=== PATIENT | female | born 1945 | race Hispanic/Latino ===

== ENCOUNTER 2017-11-12 18:24 | Inpatient (IN) | payer MEDICARE ==
[~2017-11-12] VITALS: Ht 167.6 cm; Wt 61.1 kg
[2017-11-12] MEDS: METHYLPREDNISOLONE SOD SUCC 125MG/2ML VIAL IV SCH (09:15)
[2017-11-12] MEDS ORDERED: CEFTRIAXONE SODIUM 1 GM ONE (18:44)
[2017-11-12 19:16] LABS: BASOPHILS % (AUTO) 0.2 % (0.0-5.0); EOSINOPHILS % (AUTO) 0.1 % (0.0-8.0); HEMATOCRIT 41.7 % (36-48); LYMPHOCYTES % (AUTO) 7.7 % (21.0-51.0); MEAN CORPUSCULAR HEMOGLOBIN 29.4 pg (27.0-33.0); MEAN CORPUSCULAR HGB CONC 33.9 g/dL (32.0-36.0); MEAN CORPUSCULAR VOLUME 86.8 fL (79-99); MONOCYTES % (AUTO) 5.1 % (3.0-13.0); NEUTROPHILS % (AUTO) 86.9 % (40.0-77.0); PLATELET COUNT (AUTO) 244 K/uL (130-400); RED BLOOD CELL COUNT(AUTO) 4.81 MIL/uL (4.00-5.50); RED CELL DISTRIBUTION WIDTH 15.2 % (11.0-15.5); WHITE BLOOD COUNT (AUTO) 12.1 K/uL (4.8-10.8)
[2017-11-12 19:26] LABS: INR 0.98 (0.85-1.15); PARTIAL THROMBOPLASTIN TIME 25.2 SEC (26.3-35.5); PROTHROMBIN TIME 10.3 SEC (9.6-11.6)
[2017-11-12 19:27] LABS: CARBON DIOXIDE 30 mmol/L (21-32); CHLORIDE 98 mmol/L (101-111); CREATININE 0.8 mg/dL (0.5-1.5); GLOMERULAR FILTR. RATE CALC 75 mL/min (>60); GLUCOSE,RANDOM 243 mg/dL (70-105); SODIUM SERUM 137 mmol/L (136-145); UREA NITROGEN, BLOOD 12 mg/dL (7-18)
[2017-11-12] MEDS ORDERED: ACETAMINOPHEN 325 MG TAB ONE (19:35)
[2017-11-12 19:41] LABS: ALANINE AMINOTRANSFERASE 35 U/L (12-78); ALBUMIN 3.6 g/dL (3.5-5.0); ASPARTATE AMINOTRANSFERASE 33 U/L (10-37); BILIRUBIN,TOTAL 0.6 mg/dL (0.2-1.0); CREATINE KINASE MB < 0.5 ng/mL (0.5-3.6); CREATINE KINASE, TOTAL 82 U/L (21-232); MYOGLOBIN 35 ng/mL (10-92); TOTAL PROTEIN, SERUM 8.2 g/dL (6.0-8.3); TROPONIN I < 0.04 ng/mL (0.00-0.06)
[2017-11-12 19:45] LABS: APPEARANCE,URINE SL CLOUDY (CLEAR); BILIRUBIN,URINE NEGATIVE (NEGATIVE); COLOR,URINE YELLOW (YELLOW); GLUCOSE, URINE (UA) >=1000 mg/dL (NEGATIVE); KETONES,URINE 40 mg/dL (NEGATIVE); LEUKOCYTE ESTERASE ,URINE SMALL (NEGATIVE); NITRATE,URINE NEGATIVE (NEGATIVE); OCCULT BLOOD,URINE TRACE-INTACT (NEGATIVE); PROTEIN,URINE NEGATIVE (NEGATIVE)
[2017-11-12 19:57] LABS: BACTERIA,URINE Few /HPF (None Seen); RBC,URINE 0-1 /HPF (0-1); RENAL EPITHELIAL CELLS,URINE Rare /LPF (None Seen); TRANSITIONAL EPI CELLS,URINE Few /LPF (None Seen)
[2017-11-12] MEDS ORDERED: ALBUTEROL SULFATE 0.083% 2.5 MG/3 ML INH IH ONE (21:17)
[2017-11-12] MEDS ORDERED: METOPROLOL TARTRATE 1 MG/ML 5ML VIAL IV ONE ×2 (21:19→22:12)
[2017-11-12] MEDS ORDERED: DIGOXIN 250 MCG/ML 2ML AMP ONE (22:24)
[2017-11-12] MEDS ORDERED: METHYLPREDNISOLONE SOD SUCC 125MG/2ML VIAL ONE (22:35)
[2017-11-12] MEDS ORDERED: ENOXAPARIN SODIUM 60 MG/0.6 ML SQ ONE (22:44)
[2017-11-12] MEDS ORDERED: LACTULOSE 20 GM/30 ML UDCUP PO PRN (22:45)
[2017-11-12] MEDS ORDERED: CEFTRIAXONE 1GM/D5W 50ML 50 ML IV SCH (22:45)
[2017-11-12] MEDS ORDERED: POTASSIUM CHLORIDE 20 MEQ ERTAB PO PRN (22:45)
[2017-11-12] MEDS ORDERED: GUAIFENESIN-DM 200/20 MG 10 ML PO PRN (22:45)
[2017-11-12] MEDS: FUROSEMIDE 10 MG/ML 2ML VIAL IV SCH (22:45)
[2017-11-12] MEDS ORDERED: ONDANSETRON HCL 4 MG/2 ML VIAL IV PRN (22:45)
[2017-11-12] MEDS ORDERED: HYDRALAZINE HCL 20 MG/ML VIAL IV PRN (22:45)
[2017-11-12] MEDS: AZITHROMYCIN 500MG+NS 250ML 250 ML IV SCH (22:45)
[2017-11-12] MEDS ORDERED: POTASSIUM CHLORIDE 10% ELIXIR 20 MEQ/15 ML UDCUP PO PRN (22:45)
[2017-11-12] MEDS ORDERED: NITROGLYCERIN 0.4 MG SL TAB SL PRN (22:45)
[2017-11-12] MEDS ORDERED: LIDOCAINE HCL-MPF 1% 2ML VIAL IVP PRN (22:45)
[2017-11-12] MEDS ORDERED: POTASSIUM CHLORIDE 20MEQ/100ML 100 ML IV PRN (22:45)
[2017-11-12] MEDS ORDERED: ACETAMINOPHEN 325 MG TAB PO PRN ×2 (22:45)
[2017-11-13] VITALS (15 sets, daily range): BP systolic 116–159; BP diastolic 41–104
[2017-11-13] MEDS ORDERED: AZITHROMYCIN 500MG+NS 250ML 250 ML IV ONE (00:36)
[2017-11-13] MEDS ORDERED: VERAPAMIL HCL 2.5 MG/ML VIAL IVP ONE (00:53)
[2017-11-13] MEDS ORDERED: FUROSEMIDE 10 MG/ML 2ML VIAL ONE (01:02)
[2017-11-13 05:00] LABS: HEMATOCRIT 42.7 % (36-48); MEAN CORPUSCULAR HEMOGLOBIN 29.7 pg (27.0-33.0); MEAN CORPUSCULAR HGB CONC 34.2 g/dL (32.0-36.0); MEAN CORPUSCULAR VOLUME 86.6 fL (79-99); PLATELET COUNT (AUTO) 232 K/uL (130-400); RED BLOOD CELL COUNT(AUTO) 4.93 MIL/uL (4.00-5.50); RED CELL DISTRIBUTION WIDTH 15.3 % (11.0-15.5)
[2017-11-13 05:10] LABS: CREATININE 0.8 mg/dL (0.5-1.5); POTASSIUM 3.7 mmol/L (3.5-5.1)
[2017-11-13 05:39] LABS: THYROID STIMULATING HORMONE 0.1 uIU/mL (0.36-3.74)
[2017-11-13] MEDS ORDERED: METHYLPREDNISOLONE SOD SUCC 125MG/2ML VIAL IVP SCH (06:00)
[2017-11-13] MEDS ORDERED: INSULIN HUMULIN R 100 UNIT/ML 3ML ONE ×2 (06:58→08:42)
[2017-11-13] MEDS: INSULIN HUMULIN R 100 UNIT/ML 3ML SQ SCH ×4 (07:30→21:01)
[2017-11-13] MEDS ORDERED: IPRATROPIUM/ALBUTEROL SULFATE 3 ML SOLUTION IH ONE (07:45)
[2017-11-13] MEDS ORDERED: METOPROLOL TARTRATE 50 MG TAB ONE (07:53)
[2017-11-13] MEDS ORDERED: METOPROLOL TARTRATE 1 MG/ML 5ML VIAL IV ONE (07:53)
[2017-11-13] MEDS ORDERED: METHYLPREDNISOLONE SOD SUCC 40MG/ML 1ML ONE (08:06)
[2017-11-13 08:14] LABS: CREATINE KINASE MB < 0.5 ng/mL (0.5-3.6); CREATINE KINASE, TOTAL 82 U/L (21-232); MYOGLOBIN 45 ng/mL (10-92)
[2017-11-13] MEDS: IPRATROPIUM/ALBUTEROL SULFATE 3 ML SOLUTION IH SCH ×3 (08:46→19:38)
[2017-11-13] MEDS ORDERED: ENOXAPARIN SODIUM 1 MG/KG SQ SCH (09:00)
[2017-11-13] MEDS: METOPROLOL TARTRATE 50 MG TAB PO SCH ×3 (09:15→20:49)
[2017-11-13] MEDS ORDERED: METO75TA PO (10:10)
[2017-11-13] MEDS ORDERED: METF10004 PO (10:11)
[2017-11-13] MEDS ORDERED: [UNRECOGNIZED DRUG - CODE] PO (10:11)
[2017-11-13] MEDS ORDERED: ATOR-2 PO (10:11)
[2017-11-13] MEDS ORDERED: FLUO-126 PO (10:11)
[2017-11-13] MEDS ORDERED: ASPI81TA40 PO (10:11)
[2017-11-13] MEDS ORDERED: LISI10TA7 PO (10:11)
[2017-11-13] MEDS ORDERED: IOPAMIDOL-370 100 ML VIAL IV ONE (10:30)
[2017-11-13 11:00] LABS: CREATINE KINASE MB < 0.5 ng/mL (0.5-3.6); CREATINE KINASE, TOTAL 71 U/L (21-232); MYOGLOBIN 59 ng/mL (10-92); TROPONIN I < 0.04 ng/mL (0.00-0.06)
[2017-11-13] MEDS ORDERED: ISOVUE-370 50ML VIAL IV ONE (11:16)
[2017-11-13] MEDS: FUROSEMIDE 10 MG/ML 2ML VIAL IV SCH ×2 (12:13→22:58)
[2017-11-13] MEDS: FAMOTIDINE 20MG TAB 20 MG TAB PO SCH ×2 (12:13→20:49)
[2017-11-13] MEDS: ENOXAPARIN SODIUM 60 MG/0.6 ML SQ SCH ×2 (12:15→20:50)
[2017-11-13] MEDS: STEVIA PO SCH ×2 (13:27→17:22)
[2017-11-13 13:29] LABS: T4 (THYROXINE) 11.1 mcg/dL (4.7-13.3)
[2017-11-13] MEDS: METOPROLOL TARTRATE 1 MG/ML 5ML VIAL IV SCH ×2 (15:23→21:31)
[2017-11-13 18:40] LABS: CREATINE KINASE MB < 0.5 ng/mL (0.5-3.6); CREATINE KINASE, TOTAL 78 U/L (21-232); MYOGLOBIN 70 ng/mL (10-92); TROPONIN I < 0.04 ng/mL (0.00-0.06)
[2017-11-13] MEDS ORDERED: METOPROLOL TARTRATE 50 MG TAB PO SCH (21:00)
[2017-11-13] MEDS ORDERED: CEFTRIAXONE SODIUM 1 GM IVP SCH (21:00)
[2017-11-13] MEDS: METHYLPREDNISOLONE SOD SUCC 125MG/2ML VIAL IV SCH (22:45)
[2017-11-13] MEDS: AZITHROMYCIN 500MG+NS 250ML 250 ML IV SCH (22:58)
[2017-11-14] MEDS: IPRATROPIUM/ALBUTEROL SULFATE 3 ML SOLUTION IH SCH ×2 (00:24→07:04)
[2017-11-14 03:20] VITALS: BP 162/69
[2017-11-14 03:36] LABS: HEMATOCRIT 38.9 % (36-48); MEAN CORPUSCULAR HEMOGLOBIN 29.2 pg (27.0-33.0); MEAN CORPUSCULAR VOLUME 85.9 fL (79-99); PLATELET COUNT (AUTO) 249 K/uL (130-400); RED BLOOD CELL COUNT(AUTO) 4.53 MIL/uL (4.00-5.50); RED CELL DISTRIBUTION WIDTH 14.6 % (11.0-15.5); WHITE BLOOD COUNT (AUTO) 12.5 K/uL (4.8-10.8)
[2017-11-14 03:49] LABS: CREATININE 0.9 mg/dL (0.5-1.5); POTASSIUM 3.2 mmol/L (3.5-5.1)
[2017-11-14 04:04] LABS: B-TYPE NATRIURETIC PEPTIDE 176 pg/mL (0-100)
[2017-11-14] MEDS: INSULIN HUMULIN R 100 UNIT/ML 3ML SQ SCH (06:36)
[2017-11-14 07:07] VITALS: BP 170/76
[2017-11-14] MEDS: FAMOTIDINE 20MG TAB 20 MG TAB PO SCH (08:37)
[2017-11-14] MEDS: FUROSEMIDE 10 MG/ML 2ML VIAL IV SCH (08:37)
[2017-11-14] MEDS: ENOXAPARIN SODIUM 60 MG/0.6 ML SQ SCH (08:37)
[2017-11-14] MEDS: METOPROLOL TARTRATE 50 MG TAB PO SCH (08:38)
[2017-11-14] MEDS ORDERED: FLUOXETINE HCL 20 MG CAPSULE PO SCH (09:00)
[2017-11-14] MEDS ORDERED: ATORVASTATIN CALCIUM 40 MG TABLET PO SCH (09:00)
[2017-11-14] MEDS ORDERED: ASPIRIN 81 MG EC TAB PO SCH (09:00)
[2017-11-14] MEDS ORDERED: LISINOPRIL 10 MG TABLET PO SCH (09:00)
[2017-11-14] MEDS ORDERED: FURO20TA6 PO (09:28)
[2017-11-14] MEDS ORDERED: AZIT500T4 PO (09:28)
== END 2017-11-14 11:00 | disposition home or self-care (01) | DRG 291 ==
LOC: EDH 18:24 → OBSVTOIN 20:56 → EDHIP 20:56 → 2BH 11-13 08:34
PROVIDERS: ADMIT Family Medicine; ATTEND Family Medicine
DX: I11.0 Hypertensive heart disease with heart failure (principal); J18.9 Pneumonia, unspecified organism; E11.65 Type 2 diabetes mellitus with hyperglycemia; I48.91 Unspecified atrial fibrillation; N39.0 Urinary tract infection, site not specified; J20.9 Acute bronchitis, unspecified; I50.31 Acute diastolic (congestive) heart failure; E78.5 Hyperlipidemia, unspecified; J06.9 Acute upper respiratory infection, unspecified; Z82.49 Family history of ischemic heart disease and other diseases of the circulatory system; Z90.49 Acquired absence of other specified parts of digestive tract
CPT/HCPCS: 36415; 71045; 71275; 80048; 80053; 81001; 82550; 82553; 82948; 83605; 83874; 83880; 84436; 84443; 84479; 84484; 85025; 85027; 85610; 85730; 87040; 87088; 87804; 93005; 93306; 94640; 94664; 99291; A4218; J0456; J0696; J1160; J1650; J1815; J1940; J2920; J2930; J3490; Q9967

== ENCOUNTER 2018-02-18 19:21 | Inpatient (IN) | payer MEDICARE ==
[~2018-02-18] VITALS: Ht 167.6 cm; Wt 89.1 kg
[~2018-02-18 19:21] MED LIST: ASPI81TA40 PO; ATOR-2 PO; AZIT500T4 PO; FLUO-126 PO; FURO20TA6 PO; LISI10TA7 PO; METF10004 PO; METO75TA PO; [UNRECOGNIZED DRUG - CODE] PO
[2018-02-18 19:47] LABS: APPEARANCE,URINE Turbid (CLEAR); BILIRUBIN,URINE Negative (NEGATIVE); COLOR,URINE Yellow (YELLOW); GLUCOSE, URINE (UA) 250 mg/dL (NEGATIVE); KETONES,URINE 15 mg/dL (NEGATIVE); LEUKOCYTE ESTERASE ,URINE Large (NEGATIVE); NITRATE,URINE Positive (NEGATIVE); OCCULT BLOOD,URINE Moderate (NEGATIVE); PROTEIN,URINE 300 (NEGATIVE)
[2018-02-18] MEDS ORDERED: SODIUM CHLORIDE 0.9% 1000ML 1,000 ML IV ONE (19:52)
[2018-02-18 19:57] LABS: WBC,URINE Full Field /HPF (0-1)
[2018-02-18 19:58] LABS: BACTERIA,URINE Many /HPF (None Seen)
[2018-02-18 20:10] LABS: BASOPHILS % (AUTO) 0.4 % (0.0-5.0); HEMATOCRIT 44.3 % (36-48); LYMPHOCYTES % (AUTO) 7.2 % (21.0-51.0); MEAN CORPUSCULAR HEMOGLOBIN 29.3 pg (27.0-33.0); MEAN CORPUSCULAR HGB CONC 33.7 g/dL (32.0-36.0); MEAN CORPUSCULAR VOLUME 87.1 fL (79-99); NEUTROPHILS % (AUTO) 87.4 % (40.0-77.0); PLATELET COUNT (AUTO) 313 K/uL (130-400); RED BLOOD CELL COUNT(AUTO) 5.09 MIL/uL (4.00-5.50); RED CELL DISTRIBUTION WIDTH 13.9 % (11.0-15.5); WHITE BLOOD COUNT (AUTO) 17.3 K/uL (4.8-10.8)
[2018-02-18 20:21] LABS: CREATININE 1.2 mg/dL (0.5-1.5); POTASSIUM 4.5 mmol/L (3.5-5.1)
[2018-02-18 20:25] LABS: ALBUMIN 3.7 g/dL (3.5-5.0); BILIRUBIN,TOTAL 0.5 mg/dL (0.2-1.0)
[2018-02-18] MEDS ORDERED: CEFTRIAXONE SODIUM 1 GM ONE (20:43)
[2018-02-18] MEDS ORDERED: INSULIN HUMULIN R 100 UNIT/ML 3ML ONE (20:44)
[2018-02-18 23:07] VITALS: BP 145/69
[2018-02-19] MEDS ORDERED: MELO-106 PO (00:05)
[2018-02-19] MEDS ORDERED: APIX5TAB PO (00:07)
[2018-02-19] MEDS ORDERED: PRAV20TA4 PO (00:07)
[2018-02-19] MEDS ORDERED: HYDRALAZINE HCL 20 MG/ML VIAL IV PRN (00:30)
[2018-02-19] MEDS ORDERED: ONDANSETRON HCL MDV 20ML 2 MG/ML VIAL IVP PRN (00:30)
[2018-02-19] MEDS ORDERED: MORPHINE SULFATE 2 MG/ML 1ML SYG IVP PRN (00:30)
[2018-02-19] MEDS ORDERED: DEXTROSE 50%-WATER 50 ML DISP.SYRIN IV PRN (00:30)
[2018-02-19] MEDS ORDERED: GLUCAGON 1MG KIT 1 MG ML IM PRN (00:30)
[2018-02-19] MEDS ORDERED: ACETAMINOPHEN 325 MG TAB PO PRN (00:30)
[2018-02-19] MEDS: SODIUM CHLORIDE 0.9% 1000ML 1,000 ML IV SCH ×2 (00:36→21:50)
[2018-02-19] MEDS: LEVOFLOXACIN 500 MG/D5W 100 ML 100 ML IV SCH (00:36)
[2018-02-19 04:20] VITALS: BP 97/66
[2018-02-19 05:58] LABS: HEMATOCRIT 37.3 % (36-48); MEAN CORPUSCULAR HEMOGLOBIN 29.1 pg (27.0-33.0); MEAN CORPUSCULAR HGB CONC 33.7 g/dL (32.0-36.0); MEAN CORPUSCULAR VOLUME 86.4 fL (79-99); PLATELET COUNT (AUTO) 249 K/uL (130-400); RED BLOOD CELL COUNT(AUTO) 4.32 MIL/uL (4.00-5.50); RED CELL DISTRIBUTION WIDTH 13.7 % (11.0-15.5); WHITE BLOOD COUNT (AUTO) 20.6 K/uL (4.8-10.8)
[2018-02-19 06:09] LABS: ALBUMIN 2.5 g/dL (3.5-5.0); BILIRUBIN,TOTAL 0.3 mg/dL (0.2-1.0); CREATININE 1.2 mg/dL (0.5-1.5); POTASSIUM 3.6 mmol/L (3.5-5.1); TOTAL PROTEIN, SERUM 6.2 g/dL (6.0-8.3)
[2018-02-19] MEDS: INSULIN R PO SS1 SQ SCH ×4 (06:42→21:53)
[2018-02-19 07:40] VITALS: BP 90/48
[2018-02-19] MEDS ORDERED: ENOXAPARIN SODIUM 40 MG/0.4 ML SYRINGE SQ SCH (09:00)
[2018-02-19] MEDS: INSULIN GLARGINE 100 UNITS/ML 10 ML VIAL SQ SCH ×2 (09:30→21:53)
[2018-02-19] MEDS: PANTOPRAZOLE SODIUM 40 MG TABLET.DR PO SCH (09:34)
[2018-02-19 11:18] VITALS: BP 100/49
[2018-02-19 16:25] VITALS: BP 93/48
[2018-02-19] MEDS: METFORMIN HCL 500 MG TABLET PO SCH (16:31)
[2018-02-19] MEDS ORDERED: METOPROLOL TARTRATE 50 MG TAB ONE (17:36)
[2018-02-19] MEDS: METOPROLOL TARTRATE 50 MG TAB PO SCH (17:39)
[2018-02-19 19:09] VITALS: BP 140/97
[2018-02-19] MEDS ORDERED: METOPROLOL TARTRATE 1 MG/ML 5ML VIAL IV PRN (21:30)
[2018-02-19] MEDS ORDERED: METOPROLOL TARTRATE 1 MG/ML 5ML VIAL IV ONE (21:42)
[2018-02-19] MEDS: ATORVASTATIN CALCIUM 10 MG TABLET PO SCH (21:50)
[2018-02-19] MEDS: APIXABAN 5 MG TABLET PO SCH (21:50)
[2018-02-19 23:22] VITALS: BP 134/79
[2018-02-20] MEDS: LEVOFLOXACIN 500 MG/D5W 100 ML 100 ML IV SCH (01:15)
[2018-02-20] MEDS ORDERED: POTASSIUM CHLORIDE 20MEQ/100ML 100 ML IV PRN (03:00)
[2018-02-20] MEDS ORDERED: POTASSIUM CHLORIDE 20 MEQ ERTAB PO PRN (03:00)
[2018-02-20] MEDS ORDERED: LIDOCAINE HCL-MPF 1% 2ML VIAL IVP PRN (03:00)
[2018-02-20] MEDS ORDERED: POTASSIUM CHLORIDE 10% ELIXIR 20 MEQ/15 ML UDCUP PO PRN (03:00)
[2018-02-20 04:32] VITALS: BP 110/61
[2018-02-20] MEDS ORDERED: DILTIAZEM HCL 5 MG/ML 10 ML VIAL IV ONE (05:15)
[2018-02-20] MEDS ORDERED: ONDANSETRON HCL 4 MG/2 ML VIAL ONE (05:37)
[2018-02-20 05:59] LABS: BASOPHILS % (AUTO) 0.4 % (0.0-5.0); EOSINOPHILS % (AUTO) 0.4 % (0.0-8.0); HEMATOCRIT 34.5 % (36-48); LYMPHOCYTES % (AUTO) 12.3 % (21.0-51.0); MEAN CORPUSCULAR HEMOGLOBIN 29.7 pg (27.0-33.0); MEAN CORPUSCULAR HGB CONC 34.2 g/dL (32.0-36.0); MEAN CORPUSCULAR VOLUME 86.7 fL (79-99); MONOCYTES % (AUTO) 7.2 % (3.0-13.0); NEUTROPHILS % (AUTO) 79.7 % (40.0-77.0); PLATELET COUNT (AUTO) 245 K/uL (130-400); RED BLOOD CELL COUNT(AUTO) 3.97 MIL/uL (4.00-5.50); RED CELL DISTRIBUTION WIDTH 14.1 % (11.0-15.5); WHITE BLOOD COUNT (AUTO) 10.6 K/uL (4.8-10.8)
[2018-02-20 06:02] LABS: POTASSIUM 3.6 mmol/L (3.5-5.1)
[2018-02-20] MEDS: INSULIN R PO SS1 SQ SCH ×4 (06:30→21:00)
[2018-02-20] MEDS ORDERED: DILTIAZEM HCL 60 MG TABLET PO SCH (07:00)
[2018-02-20 08:00] VITALS: BP_SYST 130; BP_SYST 142; BP_DIAS 67; BP_DIAS 78
[2018-02-20] MEDS: METFORMIN HCL 500 MG TABLET PO SCH ×2 (08:00→17:16)
[2018-02-20] MEDS ORDERED: PHARMACY COMMUNICATION MISC ONE (08:15)
[2018-02-20] MEDS ORDERED: DIGOXIN 250 MCG/ML 2ML AMP IV SCH (08:30)
[2018-02-20] MEDS: MELOXICAM 7.5 MG TABLET PO SCH (09:38)
[2018-02-20] MEDS: FLUOXETINE HCL 20 MG CAPSULE PO SCH (09:38)
[2018-02-20] MEDS: FUROSEMIDE 20 MG TABLET PO SCH (09:38)
[2018-02-20] MEDS: APIXABAN 5 MG TABLET PO SCH ×2 (09:38→21:33)
[2018-02-20] MEDS: LISINOPRIL 10 MG TABLET PO SCH (09:38)
[2018-02-20] MEDS: PANTOPRAZOLE SODIUM 40 MG TABLET.DR PO SCH (09:38)
[2018-02-20] MEDS: METOPROLOL TARTRATE 50 MG TAB PO SCH ×2 (09:38→21:36)
[2018-02-20] MEDS: INSULIN GLARGINE 100 UNITS/ML 10 ML VIAL SQ SCH ×2 (09:48→21:00)
[2018-02-20 12:00] VITALS: BP 107/62
[2018-02-20] MEDS: METOPROLOL TARTRATE 1 MG/ML 5ML VIAL IV PRN ×3 (14:34→16:18)
[2018-02-20 16:00] VITALS: BP 117/54
[2018-02-20 20:00] VITALS: BP 130/59
[2018-02-20] MEDS: SODIUM CHLORIDE 0.9% 1000ML 1,000 ML IV SCH (21:32)
[2018-02-20] MEDS: ATORVASTATIN CALCIUM 10 MG TABLET PO SCH (21:33)
[2018-02-20 21:35] VITALS: BP 133/65
[2018-02-21 00:07] VITALS: BP 142/64
[2018-02-21] MEDS: LEVOFLOXACIN 500 MG/D5W 100 ML 100 ML IV SCH (01:10)
[2018-02-21 04:04] VITALS: BP 123/47
[2018-02-21 06:14] LABS: BASOPHILS % (AUTO) 0.7 % (0.0-5.0); EOSINOPHILS % (AUTO) 1.3 % (0.0-8.0); HEMATOCRIT 30.6 % (36-48); LYMPHOCYTES % (AUTO) 21.2 % (21.0-51.0); MEAN CORPUSCULAR HEMOGLOBIN 30.3 pg (27.0-33.0); MEAN CORPUSCULAR HGB CONC 34.6 g/dL (32.0-36.0); MEAN CORPUSCULAR VOLUME 87.4 fL (79-99); MONOCYTES % (AUTO) 7.7 % (3.0-13.0); NEUTROPHILS % (AUTO) 69.1 % (40.0-77.0); PLATELET COUNT (AUTO) 217 K/uL (130-400); WHITE BLOOD COUNT (AUTO) 5.7 K/uL (4.8-10.8)
[2018-02-21 06:22] LABS: CREATININE 0.9 mg/dL (0.5-1.5); MAGNESIUM 1.5 mg/dL (1.80-2.40); POTASSIUM 4.1 mmol/L (3.5-5.1)
[2018-02-21] MEDS: INSULIN R PO SS1 SQ SCH ×2 (06:35→11:30)
[2018-02-21] MEDS ORDERED: MAGNESIUM 2GM PREMIX 50ML 50 ML IV PRN (07:00)
[2018-02-21 08:00] VITALS: BP 131/54
[2018-02-21] MEDS: PANTOPRAZOLE SODIUM 40 MG TABLET.DR PO SCH (08:55)
[2018-02-21] MEDS: FUROSEMIDE 20 MG TABLET PO SCH (08:55)
[2018-02-21] MEDS: MELOXICAM 7.5 MG TABLET PO SCH (08:55)
[2018-02-21] MEDS: APIXABAN 5 MG TABLET PO SCH (08:55)
[2018-02-21] MEDS: FLUOXETINE HCL 20 MG CAPSULE PO SCH (08:56)
[2018-02-21] MEDS: METOPROLOL TARTRATE 50 MG TAB PO SCH (08:56)
[2018-02-21] MEDS: METFORMIN HCL 500 MG TABLET PO SCH (08:56)
[2018-02-21] MEDS: LISINOPRIL 10 MG TABLET PO SCH (08:56)
[2018-02-21] MEDS: SODIUM CHLORIDE 0.9% 1000ML 1,000 ML IV SCH ×2 (09:01→11:01)
[2018-02-21] MEDS: INSULIN GLARGINE 100 UNITS/ML 10 ML VIAL SQ SCH (09:11)
[2018-02-21 11:51] VITALS: BP 129/58
[2018-02-21] MEDS ORDERED: LEVO500T2 PO (13:31)
== END 2018-02-21 17:05 | disposition home or self-care (01) | DRG 872 ==
LOC: EDH 19:21 → EDHIP 21:46 → 3DH 22:55
PROVIDERS: ADMIT Family Medicine; ATTEND Family Medicine
DX: A41.9 Sepsis, unspecified organism (principal); N10 Acute pyelonephritis; D68.59 Other primary thrombophilia; I48.0 Paroxysmal atrial fibrillation; E11.65 Type 2 diabetes mellitus with hyperglycemia; I10 Essential (primary) hypertension; E78.5 Hyperlipidemia, unspecified; I48.91 Unspecified atrial fibrillation; Z79.4 Long term (current) use of insulin; E89.0 Postprocedural hypothyroidism; K76.0 Fatty (change of) liver, not elsewhere classified; Z79.01 Long term (current) use of anticoagulants; Z79.899 Other long term (current) drug therapy; Z87.442 Personal history of urinary calculi; Z90.49 Acquired absence of other specified parts of digestive tract; D72.829 Elevated white blood cell count, unspecified
CPT/HCPCS: 36415; 80048; 80053; 81001; 82150; 82948; 83690; 83735; 84443; 85025; 85027; 87040; 87088; 93005; C9113; J0696; J1160; J1650; J1815; J1956; J2405; J3475; J3480; J3490; J7030

== ENCOUNTER 2019-01-25 02:26 | Observation (INO) | payer MEDICARE ==
[~2019-01-25] VITALS: Ht 160 cm; Wt 65.0 kg
[~2019-01-25 02:26] MED LIST changes: +APIX5TAB PO; -ASPI81TA40 PO; -ATOR-2 PO; -AZIT500T4 PO; +LEVO500T2 PO; +MELO-106 PO; +METF-446 PO; -METF10004 PO; +PRAV20TA4 PO; -[UNRECOGNIZED DRUG - CODE] PO
[2019-01-25 03:06] LABS: APPEARANCE,URINE Clear (CLEAR); BILIRUBIN,URINE Negative (NEGATIVE); COLOR,URINE Yellow (YELLOW); GLUCOSE, URINE (UA) Negative (NEGATIVE); KETONES,URINE Negative (NEGATIVE); LEUKOCYTE ESTERASE ,URINE Moderate (NEGATIVE); NITRATE,URINE Negative (NEGATIVE); OCCULT BLOOD,URINE Negative (NEGATIVE); PROTEIN,URINE Negative (NEGATIVE)
[2019-01-25] MEDS ORDERED: SODIUM CHLORIDE 0.9% 1000ML 2,000 ML IV ONE (03:20)
[2019-01-25] MEDS ORDERED: SODIUM CHLORIDE 0.9% 50 ML IV ONE (03:21)
[2019-01-25 03:23] LABS: BACTERIA,URINE Moderate /HPF (None Seen); MUCUS,URINE Moderate LPF (None Seen); RBC,URINE 0-1 /HPF (0-1); SQUAMOUS EPITHELIAL CELL,UR Few /HPF (0-2)
[2019-01-25 03:23] LABS: BASOPHILS % (AUTO) 0.8 % (0.0-5.0); EOSINOPHILS % (AUTO) 0.4 % (0.0-8.0); HEMATOCRIT 38.3 % (36-48); LYMPHOCYTES % (AUTO) 9.8 % (21.0-51.0); MEAN CORPUSCULAR HEMOGLOBIN 28.8 pg (27.0-33.0); MEAN CORPUSCULAR HGB CONC 33.4 g/dL (32.0-36.0); MEAN CORPUSCULAR VOLUME 86.3 fL (79-99); MONOCYTES % (AUTO) 5.5 % (3.0-13.0); NEUTROPHILS % (AUTO) 83.5 % (40.0-77.0); PLATELET COUNT (AUTO) 272 K/uL (130-400); RED BLOOD CELL COUNT(AUTO) 4.44 MIL/uL (4.00-5.50); RED CELL DISTRIBUTION WIDTH 14.1 % (11.0-15.5); WHITE BLOOD COUNT (AUTO) 11.4 K/uL (4.8-10.8)
[2019-01-25] MEDS ORDERED: ONDANSETRON HCL 4 MG/2 ML VIAL ONE (03:31)
[2019-01-25 03:38] LABS: INR 0.95 (0.85-1.15); PARTIAL THROMBOPLASTIN TIME 24.7 SEC (26.3-35.5)
[2019-01-25] MEDS ORDERED: ACETAMINOPHEN 325 MG TAB ONE (04:12)
[2019-01-25 04:19] LABS: CREATININE 0.9 mg/dL (0.5-1.5); POTASSIUM 4.8 mmol/L (3.5-5.1)
[2019-01-25 04:23] LABS: ALBUMIN 3.6 g/dL (3.5-5.0); BILIRUBIN,TOTAL 0.2 mg/dL (0.2-1.0); TOTAL PROTEIN, SERUM 7.5 g/dL (6.0-8.3)
[2019-01-25] MEDS ORDERED: METOPROLOL TARTRATE 1 MG/ML 5ML VIAL IV ONE ×2 (04:37→05:00)
[2019-01-25] MEDS: SODIUM CHLORIDE 0.9% 1000ML 1,000 ML IV SCH ×3 (04:45→21:24)
[2019-01-25] MEDS ORDERED: ACETAMINOPHEN 325 MG TAB PO PRN ×2 (04:45)
[2019-01-25] MEDS ORDERED: ONDANSETRON HCL 4 MG/2 ML VIAL IV PRN (04:45)
[2019-01-25] MEDS ORDERED: CEFTRIAXONE SODIUM 1 GM IVP SCH (06:00)
[2019-01-25 07:40] VITALS: BP 114/51
[2019-01-25] MEDS: FAMOTIDINE/PF 20 MG/2 ML VIAL IV SCH ×2 (08:55→21:23)
[2019-01-25] MEDS ORDERED: METOPROLOL TARTRATE 25 MG TAB PO SCH (09:00)
[2019-01-25] MEDS ORDERED: ENOXAPARIN SODIUM 30 MG/0.3 ML SQ SCH (09:00)
--- NOTE | 2019-01-25 11:01 | NUR ---
INFORMED DR. LOMELI THAT PATIENT IS IN 223.
[2019-01-25 11:08] VITALS: BP 142/55
[2019-01-25] MEDS: INSULIN HUMULIN R 100 UNIT/ML 3ML SQ SCH ×3 (11:56→21:25)
[2019-01-25] MEDS ORDERED: SOTA80TA20 PO (14:19)
[2019-01-25] MEDS ORDERED: SERT50TA12 PO (14:19)
--- NOTE | 2019-01-25 16:36 | NUR ---
DC PLAN VISITED WITH PATIENT. PATIENT LIVES WITH [facility]. SEMI INDEPENDENT ABLE TO PERFORM ADL'S. PROVIDER 5 HRS A DAY. PATIENT HAS NO DME'S. FEELS SAFE TO RETURN HOME. Addendum: 01/25/19 at 1637 by PATRICIA BIRMINGHAM RN CM Amended: Links added.
[2019-01-25 16:46] VITALS: BP 135/81
[2019-01-25] MEDS ORDERED: NON-FORMULARY MEDICATION 1 EACH (Metformin HCl 1,000 MG) PO SCH (17:00)
[2019-01-25] MEDS ORDERED: METFORMIN HCL 500 MG TABLET PO SCH (18:05)
[2019-01-25] MEDS ORDERED: PHARMACY COMMUNICATION MISC SCH (18:15)
[2019-01-25] MEDS: SOTALOL HCL 80 MG TABLET PO SCH (19:17)
[2019-01-25 19:34] VITALS: BP 143/76
[2019-01-25] MEDS: APIXABAN 5 MG TABLET PO SCH (21:23)
[2019-01-25] MEDS: CEFTRIAXONE SODIUM 1 GM IVP SCH (21:25)
[2019-01-25 23:35] VITALS: BP 147/76
[2019-01-26 03:24] VITALS: BP 145/82
[2019-01-26 04:22] LABS: HEMATOCRIT 35.3 % (36-48); MEAN CORPUSCULAR HEMOGLOBIN 29.3 pg (27.0-33.0); MEAN CORPUSCULAR HGB CONC 33.8 g/dL (32.0-36.0); MEAN CORPUSCULAR VOLUME 86.6 fL (79-99); PLATELET COUNT (AUTO) 232 K/uL (130-400); RED BLOOD CELL COUNT(AUTO) 4.08 MIL/uL (4.00-5.50); RED CELL DISTRIBUTION WIDTH 14.1 % (11.0-15.5); WHITE BLOOD COUNT (AUTO) 4.9 K/uL (4.8-10.8)
[2019-01-26 04:44] LABS: CREATININE 0.8 mg/dL (0.5-1.5); POTASSIUM 4.2 mmol/L (3.5-5.1)
[2019-01-26] MEDS: INSULIN HUMULIN R 100 UNIT/ML 3ML SQ SCH ×2 (06:02→11:11)
[2019-01-26 07:00] VITALS: BP 149/83
[2019-01-26] MEDS: SOTALOL HCL 80 MG TABLET PO SCH (07:49)
[2019-01-26] MEDS: APIXABAN 5 MG TABLET PO SCH (07:49)
[2019-01-26] MEDS: FAMOTIDINE/PF 20 MG/2 ML VIAL IV SCH (07:49)
[2019-01-26] MEDS: CEFTRIAXONE SODIUM 1 GM IVP SCH (07:54)
[2019-01-26] MEDS ORDERED: SERTRALINE HCL 50 MG TABLET PO SCH (09:00)
[2019-01-26] MEDS ORDERED: LISINOPRIL 10 MG TABLET PO SCH (09:00)
[2019-01-26] MEDS ORDERED: FLUOXETINE HCL 20 MG CAPSULE PO SCH (09:00)
[2019-01-26] MEDS ORDERED: SULF1TAB42 PO (09:58)
[2019-01-26] MEDS: SODIUM CHLORIDE 0.9% 1000ML 1,000 ML IV SCH (10:03)
--- NOTE | 2019-01-26 13:00 | NUR ---
DISCHARGE INSTRUCTIONS/INFORMATION GIVEN TO PATIENT AND PROVIDER. NEW PRESCRIPTION FOR BACTRIM WAS INCLUDED IN DISCHARGE PACKET. TEACH BACK METHOD USED TO EDUCATE PATIENT ON NEW MEDICATION, S/S TO MONITOR, WHEN TO CALL MD, DIET, AND FOLLOW UP APPOINTMENT. PIV REMOVED. TIP WAS INTACT. TELE DERRICK REMOVED AND RETURNED. ALL BELONGINGS WERE PACKED. PATIENT WAS WHEELED TO VEHICLE BY ASHLEY ALFARO.
[2019-01-26] MEDS ORDERED: Pravastatin Sodium 20 MG PO SCH (21:00)
== END 2019-01-26 12:21 | disposition home or self-care (01) ==
LOC: EDH 02:26 → EDHIP 04:35 → INTOOBSV 04:35 → 2DH 06:55
PROVIDERS: ADMIT Internal Medicine; ATTEND Internal Medicine
DX: N39.0 Urinary tract infection, site not specified (principal); E11.9 Type 2 diabetes mellitus without complications; E78.5 Hyperlipidemia, unspecified; I10 Essential (primary) hypertension; I48.91 Unspecified atrial fibrillation; J44.9 Chronic obstructive pulmonary disease, unspecified; Z79.4 Long term (current) use of insulin; Z90.710 Acquired absence of both cervix and uterus; Z90.49 Acquired absence of other specified parts of digestive tract; Z82.49 Family history of ischemic heart disease and other diseases of the circulatory system
CPT/HCPCS: 36415 ×2; 71045; 80048; 80053; 81001; 82040; 82550; 82948 ×5; 83605 ×2; 84484; 85025; 85027; 85610; 85730; 87040 ×2; 87077; 87088; 87186; 87804 ×2; 93005; 96372; 96374; 96375; 96376 ×2; 99284; A4218; G0378 ×32; J0696 ×2; J1650; J1815 ×2; J2405; J3490 ×5; J7030 ×3

== ENCOUNTER → 2019-10-08 | Outpatient (CLI) | payer MEDICARE ==
[~2019-10-08] MED LIST changes: -FLUO-126 PO; +FLUO20CA35 PO; -FURO20TA6 PO; -LEVO500T2 PO; -MELO-106 PO; -METO75TA PO; +SERT50TA12 PO; +SOTA80TA20 PO; +SULF1TAB42 PO
== END | disposition home or self-care (01) ==
LOC: RAH 14:02
PROVIDERS: ATTEND Internal Medicine
DX: R53.1 Weakness (principal)
CPT/HCPCS: 93922

== ENCOUNTER 2021-07-10 23:41 | Emergency (ER) | payer MEDICARE ==
[~2021-07-10] VITALS: Ht 154.9 cm; Wt 65.8 kg
[~2021-07-10 23:41] MED LIST changes: -FLUO20CA35 PO; +FLUO20CA36 PO; +LISI10TA24 PO; -LISI10TA7 PO; +SERT-439 PO; -SERT50TA12 PO
[2021-07-11 01:16] LABS: BASOPHILS % (AUTO) 0.3 % (0.0-5.0); EOSINOPHILS % (AUTO) 1.2 % (0.0-8.0); HEMATOCRIT 43.4 % (36-48); MEAN CORPUSCULAR HEMOGLOBIN 24.5 pg (27.0-33.0); MEAN CORPUSCULAR HGB CONC 31.1 g/dL (32.0-36.0); MEAN CORPUSCULAR VOLUME 78.8 fL (79-99); MONOCYTES % (AUTO) 6.7 % (3.0-13.0); NEUTROPHILS % (AUTO) 74.3 % (40.0-77.0); PLATELET COUNT (AUTO) 297 K/uL (130-400); RED BLOOD CELL COUNT(AUTO) 5.51 MIL/uL (4.00-5.50); RED CELL DISTRIBUTION WIDTH 17.8 % (11.0-15.5)
[2021-07-11 01:18] LABS: APPEARANCE,URINE Clear (CLEAR); BILIRUBIN,URINE Negative (NEGATIVE); COLOR,URINE Yellow (YELLOW); GLUCOSE, URINE (UA) >=1000 mg/dL (NEGATIVE); KETONES,URINE Negative (NEGATIVE); LEUKOCYTE ESTERASE ,URINE Trace (NEGATIVE); NITRATE,URINE Positive (NEGATIVE); OCCULT BLOOD,URINE Nonhemolyzed Trace (NEGATIVE); PROTEIN,URINE Negative (NEGATIVE); UROBILINOGEN,URINE 0.2 mg/dL (0.2-1.0)
[2021-07-11 01:36] LABS: CREATININE 1.3 mg/dL (0.5-1.5); POTASSIUM 4.5 mmol/L (3.5-5.1)
[2021-07-11 01:41] LABS: ALBUMIN 3.6 g/dL (3.5-5.0); BILIRUBIN,TOTAL 0.2 mg/dL (0.2-1.0); TOTAL PROTEIN, SERUM 8.1 g/dL (6.0-8.3)
[2021-07-11 02:08] LABS: BACTERIA,URINE Moderate /HPF (None Seen); SQUAMOUS EPITHELIAL CELL,UR Few /HPF (0-2)
[2021-07-11] MEDS ORDERED: CEFTRIAXONE 1G VIAL IVP ONE (02:30)
[2021-07-11] MEDS ORDERED: CEFTRIAXONE 1G VIAL ONE (02:33)
[2021-07-11] MEDS ORDERED: CEPH500B PO (02:34)
[2021-07-11 02:59] VITALS: BP 138/62
== END 2021-07-11 03:04 | disposition home or self-care (01) ==
LOC: EDH 23:41
DX: S00.03XA Contusion of scalp, initial encounter (principal); S30.0XXA Contusion of lower back and pelvis, initial encounter; N39.0 Urinary tract infection, site not specified; I11.9 Hypertensive heart disease without heart failure; I25.10 Atherosclerotic heart disease of native coronary artery without angina pectoris; F03.90 Unspecified dementia, unspecified severity, without behavioral disturbance, psychotic disturbance, mood disturbance, and anxiety; E78.00 Pure hypercholesterolemia, unspecified; Z79.01 Long term (current) use of anticoagulants; Z79.84 Long term (current) use of oral hypoglycemic drugs; Z79.899 Other long term (current) drug therapy; Z86.73 Personal history of transient ischemic attack (TIA), and cerebral infarction without residual deficits; W18.39XA Other fall on same level, initial encounter; Y93.89 Activity, other specified; Y92.098 Other place in other non-institutional residence as the place of occurrence of the external cause; Y99.8 Other external cause status
CPT/HCPCS: 36415; 70450; 71045; 72131; 80053; 81001; 84484; 85025; 87077; 87088; 87186; 93005; 96374; 99285; J0696

== ENCOUNTER 2022-05-28 07:54 | Day surgery (SDC) | payer OTHER, MEDICARE ==
[2022-05-27 13:49] LABS: BASOPHILS % (AUTO) 0.4 % (0.0-5.0); EOSINOPHILS % (AUTO) 1.6 % (0.0-8.0); HEMATOCRIT 42.4 % (36-48); LYMPHOCYTES % (AUTO) 22.7 % (21.0-51.0); MEAN CORPUSCULAR HGB CONC 31.6 g/dL (32.0-36.0); MEAN CORPUSCULAR VOLUME 88.7 fL (79-99); MONOCYTES % (AUTO) 8.3 % (3.0-13.0); NEUTROPHILS % (AUTO) 66.7 % (40.0-77.0); PLATELET COUNT (AUTO) 366 K/uL (130-400); RED BLOOD CELL COUNT(AUTO) 4.78 MIL/uL (4.00-5.50); RED CELL DISTRIBUTION WIDTH 19.9 % (11.0-15.5); WHITE BLOOD COUNT (AUTO) 6.8 K/uL (4.8-10.8)
[2022-05-27 13:56] VITALS: BP 103/55
[2022-05-27 13:58] LABS: CREATININE 1.1 mg/dL (0.5-1.5); POTASSIUM 4.3 mmol/L (3.5-5.1)
[2022-05-27 14:02] LABS: INR 1.03 (0.85-1.15); PROTHROMBIN TIME 11.2 SEC (9.6-11.6)
[2022-05-27 14:03] LABS: PARTIAL THROMBOPLASTIN TIME 26.9 SEC (26.3-35.5)
[2022-05-28] VITALS (11 sets, daily range): BP systolic 82–118; BP diastolic 43–68
[~2022-05-28] VITALS: Ht 160 cm; Wt 66.2 kg
[~2022-05-28 07:54] MED LIST changes: +BACL10TA PO; +DILT120C92 PO; +DRON400T7 PO; -FLUO20CA36 PO; +INSU100I13 SQ; -LISI10TA24 PO; -METF-446 PO; +METO-391 PO; +OLAN5TAB76 PO; -PRAV20TA4 PO; -SERT-439 PO; -SOTA80TA20 PO; -SULF1TAB42 PO; +TRAM50TA4 PO
[2022-05-28] MEDS ORDERED: 0.9%NACL 1000ML 1,000 ML IV SCH (08:00)
[2022-05-28] MEDS ORDERED: METOPROLOL SUCCINATE 50 MG TAB.SR.24H PO SCH (09:30)
[2022-05-28] MEDS ORDERED: PROPOFOL 10 MG/ML 20ML VIAL IV ONE (09:56)
== END 2022-05-28 11:45 | disposition home or self-care (01) ==
LOC: DAH 07:54
PROVIDERS: ATTEND Internal Medicine Cardiovascular Disease
DX: I48.19 Other persistent atrial fibrillation (principal); I95.1 Orthostatic hypotension; E11.9 Type 2 diabetes mellitus without complications; E03.9 Hypothyroidism, unspecified; E78.5 Hyperlipidemia, unspecified; Z79.899 Other long term (current) drug therapy; Z82.49 Family history of ischemic heart disease and other diseases of the circulatory system; Z83.3 Family history of diabetes mellitus; Z79.4 Long term (current) use of insulin; Z90.49 Acquired absence of other specified parts of digestive tract; Z95.5 Presence of coronary angioplasty implant and graft; Z79.01 Long term (current) use of anticoagulants
CPT/HCPCS: 87426; 80048; 85025; 85610; 85730; 36415; 92960; 82948 ×2; 93005; A4663; J7030; J2704; A4215; A4222; A4221; A4216; A4606; A4223 ×3; 99157

== ENCOUNTER → 2022-12-14 | Outpatient (CLI) | payer OTHER, MEDICARE ==
[~2022-12-14] MED LIST changes: +AMIO200T68 PO; -DRON400T7 PO
== END | disposition home or self-care (01) ==
LOC: SHCH 14:30
PROVIDERS: ATTEND Internal Medicine Cardiovascular Disease
DX: I08.1 Rheumatic disorders of both mitral and tricuspid valves (principal); I48.20 Chronic atrial fibrillation, unspecified; I10 Essential (primary) hypertension; E78.5 Hyperlipidemia, unspecified; E11.9 Type 2 diabetes mellitus without complications
CPT/HCPCS: 93306

== ENCOUNTER 2023-01-03 06:04 | Day surgery (SDC) | payer OTHER, MEDICARE ==
[2022-12-30 09:41] LABS: BASOPHILS % (AUTO) 0.3 % (0.0-5.0); EOSINOPHILS % (AUTO) 0.9 % (0.0-8.0); HEMATOCRIT 48.3 % (36-48); LYMPHOCYTES % (AUTO) 19.9 % (21.0-51.0); MEAN CORPUSCULAR HEMOGLOBIN 29.3 pg (27.0-33.0); MEAN CORPUSCULAR HGB CONC 32.3 g/dL (32.0-36.0); MEAN CORPUSCULAR VOLUME 90.6 fL (79-99); MONOCYTES % (AUTO) 4.9 % (3.0-13.0); NEUTROPHILS % (AUTO) 73.7 % (40.0-77.0); PLATELET COUNT (AUTO) 243 K/uL (130-400); RED BLOOD CELL COUNT(AUTO) 5.33 MIL/uL (4.00-5.50); RED CELL DISTRIBUTION WIDTH 13.5 % (11.0-15.5); WHITE BLOOD COUNT (AUTO) 6.9 K/uL (4.8-10.8)
[2022-12-30 09:50] LABS: INR 1.05 (0.85-1.15); PROTHROMBIN TIME 11.4 SEC (9.6-11.6)
[2022-12-30 09:51] LABS: POTASSIUM 4.3 mmol/L (3.5-5.1)
[2022-12-30 09:52] LABS: PARTIAL THROMBOPLASTIN TIME 28.5 SEC (26.3-35.5)
[2022-12-30 10:11] VITALS: BP 83/53
[2023-01-03] VITALS (9 sets, daily range): BP systolic 99–132; BP diastolic 46–74
[~2023-01-03] VITALS: Ht 162.6 cm; Wt 62.2 kg
[~2023-01-03 06:04] MED LIST changes: +ALEN70TA80 PO; -AMIO200T68 PO; +ATOR20TA65 PO; -BACL10TA PO; +CITA10TA89 PO; -DILT120C92 PO; +DILT180C63 PO; +INSLAN SQ; -INSU100I13 SQ; +LEVO50CA4 PO; -METO-391 PO; -TRAM50TA4 PO; +VITAD50000 PO
[2023-01-03] MEDS ORDERED: 0.9%NACL 1000ML 1,000 ML IV ONE (06:26)
[2023-01-03] MEDS ORDERED: BUPIVACAINE/PF 0.25% 10ML VIAL IJ ONE (07:31)
[2023-01-03] MEDS ORDERED: CEFAZOLIN SODIUM 1 GM VIAL ONE (07:31)
[2023-01-03] MEDS ORDERED: MEPERIDINE-PF 25 MG/ML SYG ONE ×2 (07:31→08:25)
[2023-01-03] MEDS ORDERED: MIDAZOLAM HCL 1 MG/ML 2ML VIAL ONE ×3 (07:31→10:17)
[2023-01-03] MEDS ORDERED: LIDOCAINE HCL 1% MDV 50ML VIAL ONE (07:32)
[2023-01-03] MEDS ORDERED: IODIXANOL 320 MG/ML 100 ML VIAL ONE (08:07)
[2023-01-03] MEDS ORDERED: METOPROLOL TARTRATE 1 MG/ML 5ML VIAL IV ONE (08:33)
[2023-01-03] MEDS ORDERED: LIDOCAINE HCL 400MG/20ML VIAL ONE (10:17)
[2023-01-03] MEDS ORDERED: HEPARIN 10,000 UNIT/10ML (1,000 UNIT/ML) VIAL ONE (10:17)
[2023-01-03] MEDS ORDERED: ACETAMINOPHEN 500 MG TABLET PO PRN (11:30)
== END 2023-01-03 15:40 | disposition home or self-care (01) ==
LOC: DAH 06:04
PROVIDERS: ATTEND Internal Medicine Cardiovascular Disease
DX: I42.0 Dilated cardiomyopathy (principal); I48.21 Permanent atrial fibrillation; I44.2 Atrioventricular block, complete; I49.3 Ventricular premature depolarization; I11.0 Hypertensive heart disease with heart failure; I50.40 Unspecified combined systolic (congestive) and diastolic (congestive) heart failure; E03.9 Hypothyroidism, unspecified; E78.5 Hyperlipidemia, unspecified; I25.2 Old myocardial infarction; Z90.49 Acquired absence of other specified parts of digestive tract; Z98.890 Other specified postprocedural states; Z82.49 Family history of ischemic heart disease and other diseases of the circulatory system; Z83.3 Family history of diabetes mellitus; Z79.01 Long term (current) use of anticoagulants; Z79.890 Hormone replacement therapy; Z79.899 Other long term (current) drug therapy
CPT/HCPCS: 80048; 85025; 85610; 85730; 36415; 93005 ×2; 33207; 33225; 93619; 93650; 82948 ×2; 71045; C1769; C1894; C2621; C1900; C1898; A4649 ×2; C1732; J0690; J3490 ×4; J7030; J1644 ×2; J2250 ×3; J2175 ×2; Q9967; A4215; A4222; A4221; A4663; A4216; A4606; A4223 ×3; 99156; 99157

== ENCOUNTER → 2024-03-13 | Outpatient (CLI) | payer OTHER, MEDICARE | END | disposition home or self-care (01) | LOC: RAH 09:19 | PROVIDERS: ATTEND Family Medicine | DX: M81.0 Age-related osteoporosis without current pathological fracture (principal) | CPT/HCPCS: 77080 ==